=== PATIENT | male | born 1965 | race African-American/Black ===

== ENCOUNTER 2017-01-07 09:07 | Emergency (ER) | payer OTHER ==
[~2017-01-07] VITALS: Ht 165.1 cm; Wt 59.0 kg
[~2017-01-07 09:07] MED LIST: BACTRIM DS TAB1 EAC1 ORAL; CEPHALEXIN500 MG ORAL; CIPROFLOXACIN500 M2 ORAL; COLACE100 MG ORAL; KEFLEX500 MG ORAL; NKM; PHENAZOPYRIDIN200 MG ORAL
[2017-01-07 09:30] VITALS: BP 120/90
[2017-01-07] MEDS ORDERED: KEFLEX500 MG ORAL (09:35)
[2017-01-07] MEDS ORDERED: Lidocaine 1% MPF 10mg/ml 5ml ONE (09:38)
--- NOTE | 2017-01-07 09:38 | Emergency Room Report ---
History of Present Illness General Chief Complaint: General Complaint Source: Patient, Medical Record Present Illness HPI Patient present with sensation that he has a bladder infection patient has had long-standing self-catheterization And feels discomfort with the urine output when he has an infection denies any fevers or chills Denies any flank pain Denies any vomiting or diarrhea Patient reports that he was seen at [facility] He has followup coming up Along with urology consultation Patient is paraplegic long-standing Allergies: Coded Allergies: No Known Allergies (Unverified , 06/02/15) Patient History Past Medical History: see triage record Pertinent Family History: none Reviewed Nursing Documentation: PMH: Agreed, PSxH: Agreed Nursing Documentation-PMH Past Medical History: No History, Except For Review of Systems All Other Systems: negative except mentioned in HPI Physical Exam Vital Signs Date Time Temp Pulse Resp B/P Pulse Ox O2 Delivery O2 Flow Rate FiO2 01/07/17 09:30 98.2 78 17 120/90 98 Room Air Sp02 EP Interpretation: reviewed, normal General Appearance: well appearing, no apparent distress Head: normocephalic, atraumatic Eyes: bilateral eye EOMI, bilateral eye PERRL ENT: hearing grossly normal, normal pharynx, TMs + canals normal, uvula midline Neck: full range of motion, supple, no meningismus, no bony tend Respiratory: lungs clear, normal breath sounds, no rhonchi, no respiratory distress, no retraction, no accessory muscle use Cardiovascular #1: normal peripheral pulses, regular rate, rhythm, no edema, no gallop, no JVD, no murmur Gastrointestinal: normal bowel sounds, non tender, soft, no mass, no organomegaly, non-distended, no guarding, no hernia, no pulsatile mass, no rebound Genitourinary: no CVA tenderness Musculoskeletal: other - paraplegia Neurologic: oriented x3, responsive, supervisor fertilizer III-XII nml as tested, motor strength/ tone normal, sensory intact Psychiatric: mood/affect normal Skin: normal color, no rash, warm/dry, palpation normal Lymphatic: normal inspection, no adenopathy Medical Decision Making Diagnostic Impression: Primary Impression: UTI (urinary tract infection) ER Course Patient has had multiple presentations with Multiple positive urinary cultures, showing Escherichia coli This does raise the concern of possible fistula Patient is not septic or toxic does have long-standing medical condition which requires close outpatient followup Patient reports that he is attempting to have urology consultation now And will continue outpatient attempt Last Vital Signs Date Time Temp Pulse Resp B/P Pulse Ox O2 Delivery O2 Flow Rate FiO2 01/07/17 09:30 98.2 78 17 120/90 98 Room Air Status: improved Disposition: HOME, SELF-CARE Condition: Improved Scripts Cephalexin* (KEFLEX*) 500 Mg Capsule 500 MG ORAL Q6H, #28 CAP 0 Refills Prov: JESSY CHRISTIE D.O. 01/07/17 Patient Instructions: Urinary Tract Infection, [id number] Additional Instructions: Patient is provided with the discharge instructions notified to follow up with primary doctor in the next 2-3 days otherwise return to the er with any worsening symptoms. Please note that this report is being documented using [email or web address] technology. This can lead to erroneous entry secondary to incorrect interpretation by the dictating instrument. JESSY CHRISTIE D.O. Jan 07, 2017 09:38
[2017-01-07 10:11] VITALS: BP 137/88
[2017-02-14] MEDS ORDERED: KEFLEX500 MG ORAL (09:55)
== END 2017-01-07 10:11 | disposition home or self-care (01) ==
LOC: EMR 09:51
DX: N39.0 Urinary tract infection, site not specified (principal); G82.20 Paraplegia, unspecified
CPT/HCPCS: 96372; 99283; J0696

== ENCOUNTER → 2017-02-14 | Emergency (ER) | payer OTHER ==
[~2017-02-14] VITALS: Ht 172.7 cm; Wt 63.5 kg
[2017-02-14 09:55] VITALS: BP 110/75
[2017-02-14 10:07] LABS: APPEARANCE,URINE SLIGHTLY CLOUDY; KETONES,URINE NEGATIVE (NEGATIVE); LEUKOCYTE ESTERASE ,URINE 3+ (NEGATIVE); NITRITE,URINE POSITIVE (NEGATIVE); PH,URINE 7 (4.5-8.0); PROTEIN,URINE NEGATIVE (NEGATIVE); UROBILINOGEN,URINE 1 MG/DL (0.0-1.0)
[2017-02-14 10:19] VITALS: BP 110/75
[2017-02-14 10:19] LABS: BACTERIA,URINE MANY /HPF; SQUAMOUS EPITHELIAL CELL,UR OCCASIONAL /LPF (NONE/OCC); WBC,URINE 15-20 /HPF (0 - 0)
--- NOTE | 2017-02-16 13:34 | Emergency Room Report ---
History of Present Illness General Chief Complaint: Male Urogenital Problems Source: Patient Present Illness HPI Patient is a 52-year-old male who presented after increased difficulty with urination. Patient reported prior bladder surgery for augmentation. Patient is a paraplegic. He reports self cathing several times a day. Patient reports having intermittent urinary infections. Patient states that in the past he is grown resistant organism. Patient denied any fever. He denied any flank pain. He had not been vomiting Allergies: Coded Allergies: No Known Allergies (Unverified , 06/02/15) Patient History Past Medical History: see triage record Reviewed Nursing Documentation: PMH: Agreed, PSxH: Agreed Nursing Documentation-PMH Past Medical History: No History, Except For Review of Systems All Other Systems: negative except mentioned in HPI Physical Exam Vital Signs Date Time Temp Pulse Resp B/P Pulse Ox O2 Delivery O2 Flow Rate FiO2 02/14/17 09:32 97.7 90 18 110/75 99 Room Air General Appearance: well appearing, no apparent distress, alert, GCS 15 Head: normocephalic, atraumatic ENT: hearing grossly normal, normal voice Neck: full range of motion, supple Respiratory: no respiratory distress, speaking full sentences Gastrointestinal: normal inspection Musculoskeletal: no calf tenderness Neurologic: motor weakness - bilateral lower extremity Psychiatric: mood/affect normal Skin: no rash Medical Decision Making Diagnostic Impression: Primary Impression: UTI (urinary tract infection) ER Course Patient presented for dysuria. Differential diagnosis included was not limited to appendicitis, urinary tract infection, pelvic inflammatory disease, urethritis, herpes among others. A urinalysis was ordered due to patient's prior history of urinary tract infection and high risk for recurrent infection. The patient's old cultures were reviewed and he was noted in the past have grown organism sensitive to Keflex. Patient was given prescription for Keflex. Patient was advised followup with his urologist in the next few days for reexamination. Patient is advised to return if any worsening condition or if any changes in status that are concerning. Labs Test 02/14/17 09:35 Urine Color Pale yellow Urine Appearance Slightly cloudy Urine pH 7 (4.5-8.0) Urine Specific [place] 1.005 (1.005-1.035) Urine Protein Negative (NEGATIVE) Urine Glucose (UA) Negative (NEGATIVE) Urine Ketones Negative (NEGATIVE) Urine Occult Blood 3+ (NEGATIVE) Urine Nitrite Positive (NEGATIVE) Urine Bilirubin Negative (NEGATIVE) Urine Urobilinogen 1 MG/DL (0.0-1.0) Urine Leukocyte Esterase 3+ (NEGATIVE) Urine RBC 5-10 /HPF (0 - 0) Urine WBC 15-20 /HPF (0 - 0) Urine Squamous Epithelial Cells Occasional /LPF Urine Bacteria Many /HPF (NONE) Last Vital Signs Date Time Temp Pulse Resp B/P Pulse Ox O2 Delivery O2 Flow Rate FiO2 02/14/17 10:19 97.7 90 18 110/75 99 Room Air Status: improved Disposition: HOME, SELF-CARE Condition: Stable Scripts Cephalexin* (KEFLEX*) 500 Mg Capsule 500 MG ORAL Q6H, #40 CAP 0 Refills Prov: Nando Joya 02/14/17 Referrals: NON PHYSICIAN (PCP) Patient Instructions: Urinary Tract Infection Nando Joya Feb 16, 2017 13:34
== END | disposition home or self-care (01) ==
LOC: EMR 10:15
DX: N39.0 Urinary tract infection, site not specified (principal); G82.20 Paraplegia, unspecified; Z98.890 Other specified postprocedural states
CPT/HCPCS: 81003; 87086; 87181; 96372; 99283; J0696

== ENCOUNTER 2017-07-19 08:40 | Emergency (ER) | payer OTHER ==
[~2017-07-19] VITALS: Ht 162.6 cm; Wt 61.2 kg
[2017-07-19 08:47] VITALS: BP 121/73
[2017-07-19] MEDS ORDERED: KEFLEX500 MG ORAL (09:04)
[2017-07-19] MEDS ORDERED: Lidocaine 1% MPF 10mg/ml 5ml ONE (09:13)
[2017-07-19] MEDS ORDERED: Lidocaine 1% MPF 10mg/ml 5ml IM ONE (09:15)
[2017-07-19 09:19] VITALS: BP 121/73
[2017-07-19 09:30] LABS: APPEARANCE,URINE TURBID; KETONES,URINE NEGATIVE (NEGATIVE); LEUKOCYTE ESTERASE ,URINE 2+ (NEGATIVE); NITRITE,URINE POSITIVE (NEGATIVE); PH,URINE 7 (4.5-8.0); PROTEIN,URINE NEGATIVE (NEGATIVE); UROBILINOGEN,URINE NORMAL MG/DL (0.0-1.0)
[2017-07-19 09:50] LABS: BACTERIA,URINE MANY /HPF; SQUAMOUS EPITHELIAL CELL,UR FEW /LPF (NONE/OCC); WBC,URINE 20-30 /HPF (0 - 0)
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
== END 2017-07-19 09:20 | disposition home or self-care (01) ==
LOC: EMR 09:01
DX: N39.0 Urinary tract infection, site not specified (principal); G82.20 Paraplegia, unspecified
CPT/HCPCS: 81003; 87086; 87181; 96372; 99284; J0696

== ENCOUNTER 2017-07-31 11:21 | Emergency (ER) | payer OTHER ==
[~2017-07-31] VITALS: Ht 172.7 cm; Wt 61.2 kg
[2017-07-31] MEDS ORDERED: NITROFURANTOIN100 M2 ORAL (12:20)
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
[2017-07-31 12:34] VITALS: BP 122/78
== END 2017-07-31 12:34 | disposition home or self-care (01) ==
LOC: EMR 12:25
DX: N39.0 Urinary tract infection, site not specified (principal); G83.9 Paralytic syndrome, unspecified; Z99.3 Dependence on wheelchair
CPT/HCPCS: 99283

== ENCOUNTER 2017-10-31 15:48 | Emergency (ER) | payer OTHER ==
[~2017-10-31] VITALS: Ht 172.7 cm; Wt 74.8 kg
[~2017-10-31 15:48] MED LIST changes: +NITROFURANTOIN100 M2 ORAL
[2017-10-31 16:08] VITALS: BP 115/71
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
[2017-10-31 16:29] LABS: BILIRUBIN, URINE NEGATIVE (NEGATIVE); COLOR,URINE PALE YELLOW; GLUCOSE, URINE (UA) NEGATIVE (NEGATIVE); KETONES,URINE NEGATIVE (NEGATIVE); LEUKOCYTE ESTERASE ,URINE 2+ (NEGATIVE); NITRITE,URINE NEGATIVE (NEGATIVE); PH,URINE 7 (4.5-8.0); PROTEIN,URINE NEGATIVE (NEGATIVE); UROBILINOGEN,URINE NORMAL MG/DL (0.0-1.0)
[2017-10-31 16:41] LABS: APPEARANCE,URINE SLIGHTLY CLOUDY
[2017-10-31] MEDS ORDERED: CIPROFLOXACIN500 M2 ORAL (16:53)
[2017-10-31] MEDS ORDERED: DEBROX15 M1 BOTH EARS (16:53)
[2017-10-31 17:15] VITALS: BP 115/71
== END 2017-10-31 17:15 | disposition home or self-care (01) ==
LOC: EMR 17:15
DX: N39.0 Urinary tract infection, site not specified (principal); H61.23 Impacted cerumen, bilateral; R53.1 Weakness; R53.83 Other fatigue; Z99.3 Dependence on wheelchair; G82.20 Paraplegia, unspecified
CPT/HCPCS: 81003; 87086; 87181; 99283

== ENCOUNTER 2017-12-17 08:47 | Emergency (ER) | payer OTHER ==
[~2017-12-17] VITALS: Ht 167.6 cm; Wt 54.4 kg
[~2017-12-17 08:47] MED LIST changes: +DEBROX15 M1 BOTH EARS
[2017-12-17 09:26] LABS: APPEARANCE,URINE CLEAR; BILIRUBIN, URINE NEGATIVE (NEGATIVE); GLUCOSE, URINE (UA) NEGATIVE (NEGATIVE); KETONES,URINE NEGATIVE (NEGATIVE); LEUKOCYTE ESTERASE ,URINE 2+ (NEGATIVE); NITRITE,URINE NEGATIVE (NEGATIVE); PH,URINE 6.5 (4.5-8.0); PROTEIN,URINE 1+ (NEGATIVE); UROBILINOGEN,URINE 1 MG/DL (0.0-1.0)
[2017-12-17 09:29] LABS: COLOR,URINE YELLOW
[2017-12-17] MEDS ORDERED: CIPROFLOXACIN500 M2 ORAL (09:37)
[2017-12-17 09:40] VITALS: BP 119/82
[2017-12-17] MEDS ORDERED: Ciprofloxacin 500mg tab ORAL ONE (09:45)
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
== END 2017-12-17 09:43 | disposition home or self-care (01) ==
LOC: EMR 09:12
DX: N39.0 Urinary tract infection, site not specified (principal); G82.20 Paraplegia, unspecified
CPT/HCPCS: 81003; 99283

== ENCOUNTER 2018-02-02 08:18 | Emergency (ER) | payer OTHER ==
[~2018-02-02] VITALS: Ht 172.7 cm; Wt 61.2 kg
[2018-02-02] MEDS ORDERED: NKM (08:25)
[2018-02-02 08:28] VITALS: BP 120/79
--- NOTE | 2018-02-02 08:42 | Emergency Room Report ---
History of Present Illness General Chief Complaint: General Complaint Source: Patient, Medical Record Present Illness HPI Patient is a 52-year-old male brought in by self after increased foul smelling urine. Patient prior history of paraplegia. He reportedly self catheterizes. Patient denies any fever. He reports having generalized weakness. He states that he had been self cathing every 6 hours and had previous cystoscopy which didn't show any evidence of bladder abnormalities. The patient had been followed by urology Allergies: Coded Allergies: No Known Allergies (Unverified , 06/02/15) Patient History Past Medical History: see triage record Reviewed Nursing Documentation: PMH: Agreed; PSxH: Agreed Nursing Documentation-PMH Past Medical History: No History, Except For Hx Hypertension: No Hx Pacemaker: No Hx Asthma: No Hx COPD: No Hx Diabetes: No Hx Cancer: No Hx Gastrointestinal Problems: No Hx Dialysis: No Hx Neurological Problems: No Hx Cerebrovascular Accident: No Hx Seizures: No Review of Systems All Other Systems: negative except mentioned in HPI Physical Exam Vital Signs Date Time Temp Pulse Resp B/P (MAP) Pulse Ox O2 Delivery O2 Flow Rate FiO2 18 08:22 98.0 72 18 120/79 97 Room Air 98.1 General Appearance: well appearing, no apparent distress, alert, GCS 15 Head: normocephalic, atraumatic ENT: hearing grossly normal, normal voice Neck: full range of motion, supple Respiratory: lungs clear, no respiratory distress, speaking full sentences Cardiovascular #1: normal peripheral pulses, regular rate, rhythm Gastrointestinal: normal inspection Musculoskeletal: no calf tenderness Neurologic: alert, oriented x3, responsive, die maker III-XII nml as tested, normal gait, motor weakness - bilateral lower extremity, sensory deficit Psychiatric: mood/affect normal Skin: no rash Medical Decision Making Diagnostic Impression: Primary Impression: UTI (urinary tract infection) ER Course Patient presented for dysuria. Differential diagnosis included was not limited to appendicitis, urinary tract infection, pelvic inflammatory disease, urethritis, herpes among others. Patient has a benign exam and does not appear to require any further imaging or laboratory testing at this time. Urinalysis was ordered. Patient is empirically being treated for urinary infection.Patient was advised the improved hygiene. The patient is advised to follow up with primary care doctor in 1-2 days. Patient is advised to return if any worsening condition or if any changes in status that are concerning. This report is dictated with [employer] pricing associate software which may occasionally lead to discrepancies related to use of this software. Last Vital Signs Date Time Temp Pulse Resp B/P (MAP) Pulse Ox O2 Delivery O2 Flow Rate FiO2 02/02/18 08:28 98.1 74 18 120/79 97 Room Air 98.1 Status: improved Disposition: HOME, SELF-CARE Condition: Stable Scripts Cephalexin* (KEFLEX*) 500 Mg Capsule 500 MG ORAL Q6H, #28 CAP 0 Refills Prov: Nando Joya 02/02/18 Nando Joya Feb 02, 2018 08:42
[2018-02-02] MEDS ORDERED: Cephalexin 500mg cap ORAL ONE (08:45)
[2018-02-02] MEDS ORDERED: KEFLEX500 MG ORAL (08:46)
[2018-02-02 08:55] VITALS: BP 120/79
[2018-02-02 09:12] LABS: APPEARANCE,URINE SLIGHTLY CLOUDY; BILIRUBIN, URINE NEGATIVE (NEGATIVE); COLOR,URINE PALE YELLOW; GLUCOSE, URINE (UA) NEGATIVE (NEGATIVE); KETONES,URINE NEGATIVE (NEGATIVE); LEUKOCYTE ESTERASE ,URINE 2+ (NEGATIVE); NITRITE,URINE NEGATIVE (NEGATIVE); PH,URINE 6.5 (4.5-8.0); PROTEIN,URINE 1+ (NEGATIVE); UROBILINOGEN,URINE NORMAL MG/DL (0.0-1.0)
== END 2018-02-02 08:57 | disposition home or self-care (01) ==
LOC: EMR 08:42
DX: N39.0 Urinary tract infection, site not specified (principal)
CPT/HCPCS: 81003; 87086; 87181; 99283

== ENCOUNTER 2018-06-24 10:55 | Emergency (ER) | payer OTHER ==
[~2018-06-24] VITALS: Ht 152.4 cm; Wt 68.0 kg
[2018-06-24] MEDS ORDERED: Cephalexin 500mg cap ORAL ONE (11:15)
[2018-06-24 11:16] VITALS: BP 113/68
--- NOTE | 2018-06-24 11:17 | Emergency Room Report ---
History of Present Illness General Chief Complaint: Male Urogenital Problems Source: Patient, Medical Record Present Illness HPI Patient presents with reports that he feels like he is having a bladder infection Patient reports that at times he gets somewhat weak Low-grade fevers And this is usually a sign that he has a bladder infection Denies any chest pain or shortness of breath denies any neck pain or photophobia He reports that about 3-4 weeks ago he was at [facility] and was given Cipro Denies any abdominal pain patient has paraplegia and self catheterizes for urine Allergies: Coded Allergies: No Known Allergies (Unverified , 06/02/15) Patient History Past Medical History: see triage record Pertinent Family History: none Reviewed Nursing Documentation: PMH: Agreed; PSxH: Agreed Nursing Documentation-PMH Past Medical History: No History, Except For Hx Hypertension: No - bladder augmentation Hx Pacemaker: No Hx Asthma: No Hx COPD: No Hx Diabetes: No Hx Cancer: No Hx Gastrointestinal Problems: No Hx Dialysis: No Hx Neurological Problems: No Hx Cerebrovascular Accident: No Hx Seizures: No Review of Systems All Other Systems: negative except mentioned in HPI Physical Exam Vital Signs Date Time Temp Pulse Resp B/P (MAP) Pulse Ox O2 Delivery O2 Flow Rate FiO2 06/24/18 11:06 98.2 87 14 113/68 95 Room Air 98.2 Sp02 EP Interpretation: reviewed, normal General Appearance: well appearing, no apparent distress Head: normocephalic, atraumatic Eyes: bilateral eye PERRL, bilateral eye EOMI ENT: hearing grossly normal, normal pharynx Neck: supple Respiratory: lungs clear Cardiovascular #1: regular rate, rhythm Gastrointestinal: non tender Musculoskeletal: other - Paraplegia but moves both upper extremities appropriately Neurologic: alert, oriented x3 Skin: no rash Lymphatic: no adenopathy Medical Decision Making Diagnostic Impression: Primary Impression: UTI (urinary tract infection) ER Course Patient has several presentations with UTI At this time does not appear septic or toxic Patient will be treated symptomatically Cultures are reviewed and appears to be sensitive to multiple medications and at this time will be placed on Keflex patient was notified that Cipro and Levaquin appeared to be resistant and should obtain medical records from [place] to provide to [facility] Last Vital Signs Date Time Temp Pulse Resp B/P (MAP) Pulse Ox O2 Delivery O2 Flow Rate FiO2 06/24/18 11:06 98.2 87 14 113/68 95 Room Air 98.2 Status: improved Disposition: HOME, SELF-CARE Condition: Stable Additional Instructions: Patient is provided with the discharge instructions notified to follow up with primary doctor in the next 2-3 days otherwise return to the er with any worsening symptoms. Please note that this report is being documented using [employer] technology. This can lead to erroneous entry secondary to incorrect interpretation by the dictating instrument. Rolly Moran DO Jun 24, 2018 11:17
[2018-06-24] MEDS ORDERED: CEPHALEXIN500 MG ORAL (11:21)
[2018-06-24 11:52] VITALS: BP 113/68
== END 2018-06-24 11:52 | disposition home or self-care (01) ==
LOC: EMR 11:26
DX: N39.0 Urinary tract infection, site not specified (principal)
CPT/HCPCS: 99283

== ENCOUNTER 2019-04-25 08:43 | Emergency (ER) | payer OTHER ==
[~2019-04-25] VITALS: Ht 152.4 cm; Wt 63.5 kg
--- NOTE | 2019-04-25 08:57 | NUR ---
ED Nurse Note: PT CAME IN TO ER TODAY FROM HOME. AOX4. PT IS WHEELCHAIR BOUND. PT C/O FATIGUE, CHILLS, AND ODOROUS URINE X 3-4 DAYS AGO. PT STATES THESE ARE TYPICAL SYMPTOMS OF UTI FOR HIM. PT DENIES DIFFICULTY OR PAINFUL URINATION. PT DENIES INCREASE IN URGENCY OR FREQUENCY. PT STATES HE SELF-CATHETERIZES DAILY ABOUT 4-5 TIMES.
[2019-04-25 08:59] VITALS: BP 132/92
[2019-04-25] MEDS ORDERED: CEPHALEXIN500 MG ORAL (09:14)
--- NOTE | 2019-04-25 09:19 | NUR ---
ED Nurse Note: PT SITTING PEACEFULLY IN WHEELCHAIR IN NAD. AOX4. PRESCRIPTION AND DISCHARGE PAPERWORK EXPLAINED TO PT. PT VERBALIZES UNDERSTANDING AND ALL QUESTIONS ANSWERED. PRESCRIPTION AND DISCHARGE PAPERWORK GIVEN TO PT AND ID WRISTBAND REMOVED. PT WHEELCHAIRED OUT OF ER INDEPENDENTLY WITH ALL BELONGINGS.
[2019-04-25 09:20] VITALS: BP 130/86
--- NOTE | 2019-04-25 11:44 | Emergency Room Report ---
History of Present Illness General Chief Complaint: Male Urogenital Problems Source: Patient Present Illness HPI Patient presents with complaints of pain in the suprapubic area consistent with his bladder infection Denies any fevers chills also reports general weakness Which are the symptoms he usually has denies any vomiting or diarrhea denies any rash Allergies: Coded Allergies: No Known Allergies (Unverified , 06/02/15) Patient History Past Medical History: see triage record Pertinent Family History: none Reviewed Nursing Documentation: PMH: Agreed; PSxH: Agreed Nursing Documentation-PMH Past Medical History: No History, Except For Hx Hypertension: No - bladder augmentation Hx Pacemaker: No Hx Asthma: No Hx COPD: No Hx Diabetes: No Hx Cancer: No Hx Gastrointestinal Problems: No Hx Dialysis: No Hx Neurological Problems: No Hx Cerebrovascular Accident: No Hx Seizures: No Review of Systems All Other Systems: negative except mentioned in HPI Physical Exam Vital Signs Date Time Temp Pulse Resp B/P (MAP) Pulse Ox O2 Delivery O2 Flow Rate FiO2 04/25/19 08:47 97.5 60 20 135/97 (110) 98 Room Air Sp02 EP Interpretation: reviewed, normal General Appearance: well appearing, no apparent distress Head: normocephalic, atraumatic Eyes: bilateral eye PERRL, bilateral eye EOMI ENT: normal pharynx Neck: supple Respiratory: lungs clear Cardiovascular #1: regular rate, rhythm Gastrointestinal: soft Musculoskeletal: other - Paraplegia Neurologic: alert, oriented x3 Skin: normal color, no rash Lymphatic: no adenopathy Medical Decision Making Diagnostic Impression: Primary Impression: UTI (urinary tract infection) ER Course Patient presents with complaints consistent with his UTI on review of medical records patient has had multiple visits reports that he was doing better recently however Again appears to be having repeat infections I discussed with them the Side effects and concerns of long-standing repeat antibiotics The likelihood that his infection is likely colonized in the bladder Patient reports that he does saline washes I encouraged him to discuss lavage with other anti-infectious pathology with his primary physician at [facility] and patient will follow closely Last Vital Signs Date Time Temp Pulse Resp B/P (MAP) Pulse Ox O2 Delivery O2 Flow Rate FiO2 04/25/19 09:20 97.8 62 17 130/86 100 Room Air Status: improved Disposition: HOME, SELF-CARE Condition: Stable Scripts Cephalexin* (KEFLEX*) 500 Mg Capsule 500 MG ORAL EVERY 6 HOURS for 7 Days, CAP Prov: Rolly Moran DO 04/25/19 Referrals: NON PHYSICIAN (PCP) Patient Instructions: Urinary Tract Infection Additional Instructions: To [facility] medical staff: I feel he would benefit the patient to provide education, and also outpatient resource for bladder irrigation with appropriate cleansing chemical for bladder irrigation. Patient is provided with the discharge instructions notified to follow up with primary doctor in the next 2-3 days otherwise return to the er with any worsening symptoms. Please note that this report is being documented using [employer] technology. This can lead to erroneous entry secondary to incorrect interpretation by the dictating instrument. Rolly Moran DO Apr 25, 2019 11:44
== END 2019-04-25 09:21 | disposition home or self-care (01) ==
LOC: EMR 09:00
DX: N39.0 Urinary tract infection, site not specified (principal); R53.1 Weakness
CPT/HCPCS: 99282

== ENCOUNTER 2019-12-07 09:16 | Emergency (ER) | payer OTHER ==
[~2019-12-07] VITALS: Ht 172.7 cm; Wt 61.2 kg
[2019-12-07 09:27] VITALS: BP 145/76
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
--- NOTE | 2019-12-07 09:37 | NUR ---
ED Nurse Note:urine sent to labs, pt. is weelchair bound and self catheterised self for urine speciment
[2019-12-07] MEDS ORDERED: Cephalexin 250mg/5ml Susp 100mL Bottle ORAL ONE (09:45)
[2019-12-07 09:48] LABS: APPEARANCE,URINE SLIGHTLY CLOUDY; BILIRUBIN, URINE NEGATIVE (NEGATIVE); COLOR,URINE PALE YELLOW; GLUCOSE, URINE (UA) NEGATIVE (NEGATIVE); KETONES,URINE NEGATIVE (NEGATIVE); LEUKOCYTE ESTERASE ,URINE 3+ (NEGATIVE); NITRITE,URINE POSITIVE (NEGATIVE); PH,URINE 7 (4.5-8.0); PROTEIN,URINE 1+ (NEGATIVE); UROBILINOGEN,URINE NORMAL MG/DL (0.0-1.0)
[2019-12-07] MEDS ORDERED: Cephalexin 500mg cap ONE (09:48)
[2019-12-07] MEDS ORDERED: CEPHALEXIN500 MG ORAL (09:48)
[2019-12-07 10:00] VITALS: BP 145/76
[2019-12-07] MEDS ORDERED: Cephalexin 500mg cap ORAL ONE (10:00)
--- NOTE | 2019-12-07 10:00 | NUR ---
ER DISCHARGE NOTE: Patient is cleared to be discharged per ERMD, pt is aox4, on room air, with stable vital signs. pt was given dc and prescription instructions, pt was able to verbalize understanding, pt left via personal wheelchair pt took all belongings.
== END 2019-12-07 10:08 | disposition home or self-care (01) ==
LOC: EMR 09:29
DX: N39.0 Urinary tract infection, site not specified (principal); G83.89 Other specified paralytic syndromes
CPT/HCPCS: 81003; 87086; 87181; Z7502; 99283

== ENCOUNTER 2020-05-28 08:30 | Emergency (ER) | payer OTHER ==
[~2020-05-28] VITALS: Ht 175.3 cm; Wt 65.8 kg
--- NOTE | 2020-05-28 08:50 | NUR ---
ED Nurse Note: Pt came in to ED via wheelchair with complains of foul-smelling urine. Per pt, he does self-catheterized himself and does every 4hrs. Pt is AOx4, calm and cooperative, VSS, on RA. Pt also complains that he has been coughing for a few days now. Placed on an isolation room; NAD noted.
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
[2020-05-28 09:15] VITALS: BP 133/88
[2020-05-28 09:20] LABS: APPEARANCE,URINE SLIGHTLY CLOUDY; BILIRUBIN, URINE NEGATIVE (NEGATIVE); COLOR,URINE PALE YELLOW; GLUCOSE, URINE (UA) NEGATIVE (NEGATIVE); KETONES,URINE NEGATIVE (NEGATIVE); LEUKOCYTE ESTERASE ,URINE 3+ (NEGATIVE); NITRITE,URINE POSITIVE (NEGATIVE); PH,URINE 7 (4.5-8.0); PROTEIN,URINE NEGATIVE (NEGATIVE); UROBILINOGEN,URINE NORMAL MG/DL (0.0-1.0)
[2020-05-28] MEDS ORDERED: cefTRIAXone 1 GM in NS 55 ML IVPB ONE (09:30)
[2020-05-28] MEDS ORDERED: CEPHALEXIN500 MG ORAL (09:32)
--- NOTE | 2020-05-28 09:40 | NUR ---
ED Nurse Note: IV established, abx infusing well; will continue to monitor.
--- NOTE | 2020-05-28 09:45 | NUR ---
ED Nurse Note: X-ray tech at bedside.
[2020-05-28 10:07] VITALS: BP 134/86
--- NOTE | 2020-05-28 10:07 | NUR ---
ER DISCHARGE NOTE: Patient is cleared to be discharged per ERMD, pt is aox4, on room air, with stable vital signs. pt was given dc and prescription instructions, pt was able to verbalize understanding, pt id band and iv site removed without complications. pt took all belongings. pt left ED assisted by wheelchair.
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
== END 2020-05-28 10:07 | disposition home or self-care (01) ==
LOC: EMR 08:58
DX: N39.0 Urinary tract infection, site not specified (principal); R53.83 Other fatigue; G82.20 Paraplegia, unspecified
CPT/HCPCS: 71045; 81003; 87086; 96365; J0696; Z7502; 99284

== ENCOUNTER 2020-08-04 10:23 | Emergency (ER) | payer OTHER ==
[~2020-08-04] VITALS: Ht 175.3 cm; Wt 61.2 kg
[2020-08-04 10:41] VITALS: BP 130/74
--- NOTE | 2020-08-04 11:29 | Emergency Room Report ---
History of Present Illness General Chief Complaint: Male Urogenital Problems Source: Patient Present Illness HPI Patient is a 55-year-old male presents for increased urinary frequency. Prior history of T 10 paraplegia. Patient denies any vomiting or fever. Reports having increased urinary burning. Had previous urinary infections in the past but a lot been on antibiotics several months ago. Denies any other current complaints. Had been intermittently performing bladder irrigations. Is followed by urology at [facility]. 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: No Patient History Past Medical History: see triage record Reviewed Nursing Documentation: PMH: Agreed; PSxH: Agreed Nursing Documentation-PMH Hx Hypertension: No - bladder augmentation Hx Pacemaker: No Hx Asthma: No Hx COPD: No Hx Diabetes: No Hx Cancer: No Hx Gastrointestinal Problems: No Hx Dialysis: No Hx Neurological Problems: No Hx Cerebrovascular Accident: No Hx Seizures: No Review of Systems All Other Systems: negative except mentioned in HPI Physical Exam Vital Signs Date Time Temp Pulse Resp B/P (MAP) Pulse Ox O2 Delivery O2 Flow Rate FiO2 08/04/20 10:41 97.7 76 18 130/74 95 Room Air General Appearance: well appearing, no apparent distress, alert, GCS 15 Head: normocephalic, atraumatic ENT: hearing grossly normal, normal voice Neck: full range of motion, supple Respiratory: lungs clear, no respiratory distress, speaking full sentences Cardiovascular #1: normal inspection, no edema Musculoskeletal: other - bilateral lower extremity weakness. 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 Differential diagnosis include was not limited to urinary tract infection, urinary retention among others. Patient has an overall benign exam. Urinalysis and urine culture were sent. Patient was given oral Keflex in the emergency department. Patient apparently has frequent urinary tract infections due to self cathing. Patient was advised to follow-up with his urologist. He was also given prescription for Keflex. He is advised to return if worse. Does not appear to be septic. The patient is advised to follow up with primary care doctor in 2-3 days. Patient is advised to return if any worsening condition or if any changes in status that are concerning. This report is dictated with [employer] swimming pool salesperson software which may occasionally lead to discrepancies related to use of this software. Labs Test 08/04/20 11:34 Urine Color Pale yellow Urine Appearance Cloudy Urine pH 7 (4.5-8.0) Urine Specific [place] 1.005 (1.005-1.035) Urine Protein 1+ (NEGATIVE) Urine Glucose (UA) Negative (NEGATIVE) Urine Ketones Negative (NEGATIVE) Urine Blood 3+ (NEGATIVE) Urine Nitrite Positive (NEGATIVE) Urine Bilirubin Negative (NEGATIVE) Urine Urobilinogen Normal MG/DL (0.0-1.0) Urine Leukocyte Esterase 3+ (NEGATIVE) Urine RBC 5-10 /HPF (0 - 0) Urine WBC 15-20 /HPF (0 - 0) Urine Squamous Epithelial Cells Occasional /LPF Urine Bacteria Many /HPF (NONE) Last Vital Signs Date Time Temp Pulse Resp B/P (MAP) Pulse Ox O2 Delivery O2 Flow Rate FiO2 08/04/20 10:41 97.7 76 18 130/74 (92) 95 Room Air Status: improved Disposition: HOME, SELF-CARE Scripts Cephalexin* (KEFLEX*) 500 Mg Capsule 500 MG ORAL EVERY 6 HOURS, #40 CAP Prov: Nando Joya MD 08/04/20 Nando Joya MD Aug 04, 2020 11:29
[2020-08-04] MEDS ORDERED: Cephalexin 500mg cap ORAL ONE (11:30)
[2020-08-04] MEDS ORDERED: CEPHALEXIN500 MG ORAL (11:33)
[2020-08-04 11:38] VITALS: BP 128/76
[2020-08-04 12:20] LABS: APPEARANCE,URINE CLOUDY; BILIRUBIN, URINE NEGATIVE (NEGATIVE); COLOR,URINE PALE YELLOW; GLUCOSE, URINE (UA) NEGATIVE (NEGATIVE); KETONES,URINE NEGATIVE (NEGATIVE); LEUKOCYTE ESTERASE ,URINE 3+ (NEGATIVE); NITRITE,URINE POSITIVE (NEGATIVE); PH,URINE 7 (4.5-8.0); PROTEIN,URINE 1+ (NEGATIVE); UROBILINOGEN,URINE NORMAL MG/DL (0.0-1.0)
== END 2020-08-04 11:38 | disposition home or self-care (01) ==
LOC: EMR 11:10
DX: N39.0 Urinary tract infection, site not specified (principal); G82.20 Paraplegia, unspecified
CPT/HCPCS: 81003; 87086; Z7502; 99283

== ENCOUNTER 2020-08-21 09:40 | Emergency (ER) | payer OTHER ==
[~2020-08-21] VITALS: Ht 172.7 cm; Wt 61.2 kg
[2020-08-21 09:57] VITALS: BP 134/86
--- NOTE | 2020-08-21 09:57 | NUR ---
ED Nurse Note: PT came in to ED via W/C for C/O dysuria/ UTI S/SX. pt was here about 2 weeks ago for similar reason and was prescribed keflex. however pt states the S/Sx has not got any better. pt is paraplegic and self cath him self daily.
--- NOTE | 2020-08-21 10:12 | NUR ---
ED Nurse Note: urine sample collected and sent to lab
[2020-08-21 10:22] LABS: APPEARANCE,URINE CLOUDY; BILIRUBIN, URINE NEGATIVE (NEGATIVE); COLOR,URINE PALE YELLOW; GLUCOSE, URINE (UA) NEGATIVE (NEGATIVE); KETONES,URINE NEGATIVE (NEGATIVE); LEUKOCYTE ESTERASE ,URINE 2+ (NEGATIVE); NITRITE,URINE POSITIVE (NEGATIVE); PH,URINE 7 (4.5-8.0); PROTEIN,URINE 1+ (NEGATIVE); UROBILINOGEN,URINE NORMAL MG/DL (0.0-1.0)
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
[2020-08-21] MEDS ORDERED: Bactrim-DS 1 tab ORAL ONE (10:30)
[2020-08-21] MEDS ORDERED: BACTRIM DS TAB1 EAC1 ORAL (10:32)
[2020-08-21 10:40] VITALS: BP 134/86
--- NOTE | 2020-08-21 10:40 | NUR ---
ED Nurse Note: Pt cleared by health care Provider for discharge. DC instructions/prescription was given and explained to pt and verbalized understanding of teachings. All medical deviecs such as ID band removed. Pt is AAO x4, left with all personal belongings.
== END 2020-08-21 10:50 | disposition home or self-care (01) ==
LOC: EMR 10:11
DX: N39.0 Urinary tract infection, site not specified (principal); G82.20 Paraplegia, unspecified
CPT/HCPCS: 81003; 87086; 87181; Z7502; 99282

== ENCOUNTER 2020-11-29 10:06 | Emergency (ER) | payer OTHER ==
[~2020-11-29] VITALS: Ht 172.7 cm; Wt 63.5 kg
--- NOTE | 2020-11-29 10:30 | NUR ---
ED Nurse Note: pt requested to do his own in and out straight cath to obtain urine specimen. gave pt the catheter kit and he stated he was familiar with this type and would let us know when he is done.
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
[2020-11-29 10:54] LABS: APPEARANCE,URINE CLOUDY; BILIRUBIN, URINE NEGATIVE (NEGATIVE); COLOR,URINE PALE YELLOW; GLUCOSE, URINE (UA) NEGATIVE (NEGATIVE); KETONES,URINE NEGATIVE (NEGATIVE); LEUKOCYTE ESTERASE ,URINE 3+ (NEGATIVE); NITRITE,URINE POSITIVE (NEGATIVE); PH,URINE 7 (4.5-8.0); PROTEIN,URINE 2+ (NEGATIVE); UROBILINOGEN,URINE NORMAL MG/DL (0.0-1.0)
[2020-11-29] MEDS ORDERED: Ciprofloxacin 500mg tab ORAL ONE (11:45)
[2020-11-29] MEDS ORDERED: CIPROFLOXACIN500 M2 ORAL (11:51)
[2020-11-29 11:55] VITALS: BP 112/69
== END 2020-11-29 11:55 | disposition home or self-care (01) ==
LOC: EMR 10:20
DX: N30.00 Acute cystitis without hematuria (principal); G82.20 Paraplegia, unspecified; N31.9 Neuromuscular dysfunction of bladder, unspecified
CPT/HCPCS: 81003; 87086; Z7502; 99283